=== PATIENT | male | born 1990 | race African-American/Black ===

== ENCOUNTER 2020-12-26 22:23 | Emergency (ER) | payer SELFPAY ==
[~2020-12-26] VITALS: Ht 170.2 cm; Wt 65.9 kg
[2020-12-26 22:39] VITALS: Ht 170.2 cm; Wt 65.9 kg
[2020-12-26 22:57] LABS: BILIRUBIN NEGATIVE (NEGATIVE); KETONE NEGATIVE (NEGATIVE); NITRITE NEGATIVE (NEGATIVE); UROBILINOGEN NORMAL mg/dL (< 2)
[2020-12-26 22:58] LABS: BACTERIA MODERATE HPF (NONE SEEN); SQUAMOUS EPITHELIAL NONE SEEN HPF (0-4); WHITE CELLS - URINE >50 HPF (0-1)
[2020-12-26 23:29] VITALS: BP 137/84
== END 2020-12-26 23:30 | disposition home or self-care (01) ==
LOC: D.ER 22:23
PROVIDERS: Emergency Medicine
DX: N28.89 Other specified disorders of kidney and ureter (principal); R36.9 Urethral discharge, unspecified